=== PATIENT | male | born 1975 | race Caucasian/White ===

== ENCOUNTER 2017-04-17 13:49 | Emergency (ER) | payer SELFPAY ==
--- NOTE | 2017-04-17 15:29 | RAD ---
INDICATION: RIGHT hand pain following injury. COMPARISON: No relevant prior exams available on the [facility] for comparison. TECHNIQUE: AP, lateral, and oblique views RIGHT hand. REPORT AND IMPRESSION: Flexion of the second through fifth fingers limits assessment on the AP view. Negative gross evidence for fracture or malalignment. Nonfocal soft tissue swelling.
[2017-04-17] MEDS ORDERED: oxyCODONE/Acetamin 5/325 MG* TAB PO ONE (16:00)
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
[2017-04-17 17:15] VITALS: BP 132/90
== END 2017-04-17 17:13 | disposition home or self-care (01) ==
LOC: ED 13:49
DX: S62.001A Unspecified fracture of navicular [scaphoid] bone of right wrist, initial encounter for closed fracture (principal); Y04.8XXA Assault by other bodily force, initial encounter; Y92.149 Unspecified place in prison as the place of occurrence of the external cause; Y35.91XA Legal intervention, means unspecified, law enforcement official injured, initial encounter
CPT/HCPCS: 29125; 99282; A9270-GY

== ENCOUNTER 2018-09-21 16:12 | Emergency (ER) | payer BC, OTHER ==
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
[2018-09-21] MEDS ORDERED: Cyclobenzaprine TAB* 10 MG PO ONE (21:00)
[2018-09-21] MEDS ORDERED: Ibuprofen TAB* 800 MG PO ONE (21:01)
[2018-09-21 21:09] VITALS: BP 132/78
== END 2018-09-21 21:09 | disposition home or self-care (01) ==
LOC: ED 16:12
DX: S42.401A Unspecified fracture of lower end of right humerus, initial encounter for closed fracture (principal); T14.8XXA Other injury of unspecified body region, initial encounter; Y35.811A Legal intervention involving manhandling, law enforcement official injured, initial encounter; Y92.149 Unspecified place in prison as the place of occurrence of the external cause; Y99.0 Civilian activity done for income or pay
CPT/HCPCS: 99282; A9270-GY